=== PATIENT | male | born 1960 | race Caucasian/White ===

== ENCOUNTER 2019-04-22 20:06 | Inpatient (IN) ==
[2019-04-22 21:17] LABS: URINE SOURCE CLEAN CATCH
[2019-04-22 21:23] LABS: BLOOD URINE NEGATIVE (NEGATIVE); COLOR YELLOW; GLUCOSE URINE NEGATIVE (NEGATIVE); KETONE URINE NEGATIVE (NEGATIVE); LEUKOCYTES URINE NEGATIVE (NEGATIVE); NITRITE URINE NEGATIVE (NEGATIVE); PROTEIN URINE TRACE mg/dL (NEGATIVE); SP GRAVITY URINE 1.023; TURBIDITY URINE HAZY (CLEAR); UROBILINOGEN URINE 2 mg/dL (NORMAL)
[2019-04-22 21:24] LABS: UR EPITHELIAL CELLS <10 /HPF (<10); URINE BACTERIA NEGATIVE /HPF; URINE WBC <10 /HPF (<10)
[2019-04-22 21:28] LABS: BILIRUBIN URINE LARGE (NEGATIVE)
[2019-04-23 00:59] LABS: BASO# 0.05 X1000 (0.0-0.2); BASO% 1.1 % (0.0-0.8); EOS# 0.03 X1000 (0.0-0.7); EOS% 0.7 % (0.0-10.0); HEMATOCRIT 38.9 % (42.0-52.0); HEMOGLOBIN 13.9 g/dL (14.0-18.0); IMM GRAN# 0.03 X1000 (0.0-0.04); IMM GRAN% 0.7 % (0.0-0.5); LYMPH# 1.07 X1000 (1.2-3.4); LYMPH% 23.8 % (20.5-51.1); MCH 31.6 PG (27-31); MCHC 35.7 g/dL (33-37); MCV 88.4 FL (81-99); MONO# 0.76 X1000 (0.11-0.59); MONO% 16.9 % (1.7-9.3); MPV 11.4 FL (7.4-10.4); NEUT# 2.56 X1000 (1.4-6.5); NEUT% 56.8 % (42.2-75.2); PLT 224 X1000 (130-400); RDW 13.5 % (11.5-14.5)
[2019-04-23 01:31] LABS: AGAP 9; ALB/GLOB RATIO 0.7; ALBUMIN 2.8 g/dL (3.5-5.0); ALKALINE PHOSPHATASE 130 U/L (32-122); BUN 8 mg/dL (8-22); CALCIUM 8.4 mg/dL (8.8-10.2); CHLORIDE 99 mmol/L (98-107); COSMO 264; CREATININE 0.6 mg/dL (0.7-1.2); ESTIMATED GFR > 60; GLUCOSE 112 mg/dL (70-104); GOT 2823 U/L (10-34); GPT 2434 U/L (10-44); SODIUM 132 mmol/L (136-145); TCO2 24 mmol/L (25-35); TOTAL BILIRUBIN 11.98 mg/dL (0.20-1.00); TOTAL PROTEIN 6.9 g/dL (6.3-8.3)
[2019-04-23 02:44] LABS: INR 1.16
[2019-04-23 02:45] LABS: PTT 33.2 Seconds (22.3-41.8)
--- NOTE | 2019-04-23 03:39 | PROVIDER DOCUMENTATION ---
This chart was entered by Maria De Jesus Bynum Scribe, acting as scribe for Martin Madden MD. HPI-Abdominal Pain/GI Problem - General Chief Complaint: Abdominal Pain Stated Complaint: HEMATURIA Time Seen by Provider: 04/23/19 00:19 Source: patient Allergies/Adverse Reactions: Patient Allergies Allergy/AdvReac Type Severity Reaction Status Date / Time No Known Allergies Allergy Verified 04/23/19 00:46 Home Medications: Home Medication List Medication Instructions Recorded Confirmed Last Taken Type Aspirin 325 mg PO DAILY 04/23/19 04/23/19 04/22/19 History - History of Present Illness-ABD Nature of Presenting Problems: 59 yom c/o ruq and epigastric abd pain, and blood in urine x 3 days. pt is an alcoholic. pt denies nvd, fever and chills. pt skin is jaundiced. pt has no regular pcp. pt has hx of afib, htn and chf. Abdominal Pain Onset Location: reports: RUQ, epigastric Pain Radiation: reports: no radiation Severity in ED: reports: mild Onset/Duration: reports: 3 days ago Timing: reports: still present Review of Systems - Adult - REVIEW OF SYSTEMS - ADULT Constitutional: reports: no symptoms reported. denies: chills, fever, fatique Eyes: reports: no symptoms reported Ears, Nose, Mouth & Throat: reports: no symptoms reported Cardiovascular: reports: no symptoms reported Respiratory: reports: no symptoms reported Gastrointestinal: reports: see HPI, abdominal pain. denies: diarrhea, nausea, vomiting Genitourinary: reports: see HPI, hematuria. denies: dysuria, discharge, frequency Musculoskeletal: reports: no symptoms reported Integumentary: reports: see HPI, other (jaundice skin). denies: hives, itching, skin sores/ulcer Neurological: reports: no symptoms reported Psychiatric: reports: no symptoms reported Endocrine: reports: no symptoms reported Hematologic/Lymphatic: reports: no symptoms reported Allergic/Immunologic: reports: no symptoms reported All Other Systems: Reviewed and Negative Past History - Adult - PAST MEDICAL HISTORY-ADULT Review of Records: reports: Old Records Reviewed, Nursing Assessment Review, Medications Reviewed, Social history reviewed & non-contributory. Major Childhood Illnesses: reports: denies history Cardiovascular: reports: A-Fib, CHF, HTN Respiratory: reports: denies history Gastrointestinal: reports: denies history Obstetrical/Gynecological: reports: denies history Genitourinary: reports: denies history Musculoskeletal: reports: denies history Neurological: reports: denies history Endocrine/Immune: reports: denies history Other Conditions: reports: denies history - PRIOR SURGERIES/PROCEDURES Surgical/Procedure History: reports: none - IMMUNIZATION STATUS Childhood Immunizations: See Nurse Assessment Flu Vaccine: See Nurse Assessment - FAMILY HISTORY Family History: reviewed, not pertinent - SOCIAL HISTORY Smoking: cigarettes, greater than 1 pack/day Provider spent 3-5 mins advising pt. on dangers of tobacco.: Discussed manners to quit use, and f/u contacts for add'l counseling. Substance Use: alcohol, marijuana Alcohol Use Frequency: every day Physical Exam-General - PHYSICAL EXAM-ADULT Initial Vital Signs Reviewed: Yes - CONSTITUTIONAL General Appearance: appears well, alert, no apparent distress - EYES Eyes: PERRL/EOMI, scleral icterus. negative: pink conjunctivae, subconjunctival hemorrhage, sunken eyes - HEAD, EARS, NOSE, MOUTH & THROAT HENMT: normocephalic/atraumatic, moist mucous membranes, normal ENT inspection - NECK Neck: non-tender, full range of motion, supple, normal inspection - RESPIRATORY Respiratory: chest non-tender, lungs clear, normal breath sounds - CARDIOVASCULAR Cardiovascular: normal peripheral pulses, regular rate, rhythm - GASTROINTESTINAL (ABDOMEN) Abdominal Exam: normal bowel sounds, soft, no organomegaly, no pulsatile mass, tenderness (ruq and epigastric to palp). negative: non tender, abnormal bowel sounds, distended, rebound - LYMPHATIC Lymphatic: no adenopathy - MUSCULOSKELETAL Back Exam: normal inspection, no CVA tenderness, no vertebral tenderness Extremity: normal range of motion, non-tender, normal inspection Peripheral Pulses: radial (R): 2+, radial (L): 2+ - SKIN Integumentary: normal turgor, warm/dry, jaundice (generalized body). negative: normal color, abrasion(s), ecchymosis, erythema, rash, swelling, tenderness - NEUROLOGIC Neurologic: grossly normal, no motor/sensory deficits - PSYCHIATRIC Psych/Mental Status: normal mood/affect, normal thought content, normal thought process, oriented x 3 Progress - PLAN OF CARE/RESULTS Progress/Plan/Lab Results: Vital Signs - 8 hr 04/22/19 20:14 04/23/19 00:13 Temperature 97.9 F 98.0 F Pulse Rate 67 78 Respiratory Rate 18 18 Blood Pressure 153/78 130/79 O2 Sat by Pulse Oximetry 99 99 Laboratory Results - last 24 hr 04/22/19 20:44 Urine Source CLEAN CATCH Urine Color YELLOW Urine Turbidity HAZY Urine pH 6.0 Ur Specific [place] 1.023 Urine Protein TRACE A Ur Glucose (Stick) NEGATIVE Ur Ketones (Stick) NEGATIVE Urine Blood NEGATIVE Urine Nitrite NEGATIVE Urine Bilirubin LARGE A Urobilinogen Dipstick 2 A Urine Leukocytes NEGATIVE Urine WBC (Auto) <10 Urine RBC (Auto) 10-20 A U Epithel Cells (Auto) <10 Urine Bacteria (Auto) NEGATIVE Orders Category Date Time Status CBC WITH ELECTRONIC DIFF [HEME] Stat Lab 04/23/19 00:20 Uncollected CMP [COMPREHENSIVE METABOLIC PANEL] [CHEM] Stat Lab 04/23/19 00:20 Uncollected URINALYSIS W/POSS RFLX CULT [URINALYSIS] Stat Lab 04/22/19 20:44 Completed Result Diagrams: 04/23/19 00:39 04/23/19 00:39 - CT/MRI 1 CT Study: Abdomen, Pelvis Impression: Abnormal, See EMR Report (possible acute cholecystitis, periportal edema, Mild perihepatic ascities.) - CONSULTS/PCP/HOSPITALIST Notification #1 *Consult/PCP/Hospitalist*: Dr Herrera Time Discussed: 03:37 Consult Disposition: Will see in ED, Admit Departure - Departure Date of Disposition Decision: 04/23/19 Time of Disposition Decision: 03:38 DIAGNOSIS: Elevated LFTs, Jaundice, Acute cholecystitis Disposition: ADMITTED INPATIENT 09 Certified Medical Emergency: Emergent Condition: Fair Referrals and Follow-Ups: None,PCP [Primary Care Provider] - - Critical Care Note This patient required my direct & personal management of CC.: No Attestation - Physician/ KESHA Attestation Patient care was provided by Advanced Practice Provider:: No The physician spent face to face time with patient:: Yes Advanced Practice Provider documentation review:: Supervising physician onsite and consulted in the evaluation and care of this patient. The physician did have a face to face encounter with the patient. This chart was documented by the indicated scribe, (Maria De Jesus Bynum Scribe) and accurately reflects the services I performed and decisions made by me, Martin Madden MD, as attested by the provider's signature.
[2019-04-23] MEDS ORDERED: ZOSYN 3.375 GM in NS 50 ML IV ONE (03:45)
--- NOTE | 2019-04-23 04:26 | HISTORY AND PHYSICAL ---
PRIMARY CARE PHYSICIAN: None. Is visiting from [place]. CHIEF COMPLAINT: Noticed dark urine and turning yellow color. HISTORY OF PRESENTING ILLNESS: A 59-year-old male with a history of chronic alcoholism and low back pain, had presented to the emergency department because he noticed dark urine and also the patient's turning yellow color. He states that he may have over did drinking this past several weeks. He was evaluated in the emergency department. The patient also had imaging done which did raise the suspicion of possible acute cholecystitis. Due to his presenting symptoms it was thought that he will require admission for further management. At the time of my examination the patient states that he just does not feel well. He denied any headache, fever, chills, chest pain, shortness of breath or any weight changes. PAST MEDICAL HISTORY: Includes chronic back pain. 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 ALLERGIES: No known drug allergies. CURRENT MEDICATIONS: None. SOCIAL HISTORY: A [id number] history of smoking. Admits to drinking daily, recently started drinking liquor also. Denies any illicit drug use. FAMILY HISTORY: Positive for coronary disease in his father. REVIEW OF SYSTEMS: Fourteen point review of system as listed in the HPI. Other systems negative. PHYSICAL EXAMINATION: GENERAL: A cooperative friendly male. He is resting comfortably now. VITAL SIGNS: Temperature 97.9 degrees, pulse 67, respirations 18, blood pressure 153/78. HEENT: Atraumatic and normocephalic. Extraocular movements are intact. There is some mild scleral icterus. NECK: No masses. CHEST: Clear to auscultation. CARDIOVASCULAR: Regular rate and rhythm. ABDOMEN: Soft. Positive bowel sounds. EXTREMITIES: No edema. NEUROLOGIC: He is awake, alert and oriented x3. : No bladder distention. SKIN: There is a yellowish hue noted. LABORATORIES AND STUDIES: WBC is 4.50, hemoglobin 13.9, hematocrit 38.9, platelets 224,000. Sodium 132, potassium 4.0, chloride 99, CO2 is 24, BUN is 8, creatinine is 0.6, glucose is 112. Bilirubin is 11.98, AST is 2823, ALT is 2434, alkaline phosphatase is 130. A CT of the abdomen and pelvis shows possibility of acute cholecystitis. ASSESSMENT: A 59-year-old male with a history of chronic low back pain and chronic alcoholism who had presented to the emergency department with a 1-week history of noticing dark urine and turning yellowish color. He was evaluated in the emergency department, the patient was jaundiced and also noted to have markedly elevated liver function tests . The patient also had imaging done which did show possibility of acute cholecystitis. Subsequently he will require admission for further management. 1. Alcoholic hepatitis. 2. Jaundice. 3. Suspected acute cholecystitis. 4. Abnormal liver function tests. 5. Chronic low back pain. PLAN: 1. We will admit the patient to medical floor with telemetry. 2. We will continue with supportive treatment. 3. We will consult Gastroenterology. 4. We will obtain a HIDA scan and start the patient on empiric antibiotics. 5. We will check a hepatitis profile and an abdominal ultrasound. 6. We will give the patient adequate pain control. 7. We will put the patient on DVT prophylaxis with SCD. 8. We will continue to follow, reassess and make further recommendations based on the patient's clinical course. cc: Melo Herrera MD MTDD
--- NOTE | 2019-04-23 07:16 | Diag Imaging Result Doc PS360 ---
EXAM: CT ABD/PELVIS W/IV CONT ONLY 04/23/2019 HISTORY: abdo pain TECHNIQUE: This exam was performed using automated exposure control, adjustment of mA or kV according to patient size, and/or use of iterative reconstruction technique. COMMENT: There is fibrotic change in the lateral costophrenic sulcus of the left lower lobe. There is no evidence of nephrolithiasis or hydronephrosis. There is pericholecystic fluid. No definite stones are demonstrated in the gallbladder. The spleen and adrenal glands are not enlarged. The pancreas is unremarkable. The aorta is not distended. There is an accessory left renal artery in the upper pole. The mesenteric arteries are patent. There is some periportal edema. Otherwise the liver is unremarkable. There are no renal masses. There is a norberto hepatis node approaching 15 mm in greatest dimension, otherwise there is no evidence of significant adenopathy or bowel obstruction. Pelvis: The appendix is normal in appearance. The urinary bladder is not distended. There is no evidence of free fluid. There is a bone island in the proximal left femur. There are degenerative disc changes and facet arthropathy particularly at the L5-S1 level. There is no evidence of acute bony abnormality. IMPRESSION: Acalculous cholecystitis. Periportal edema which may be secondary to this, or related to hepatitis. Electronically signed by Kemar Salmeron 04/23/2019 7:13 AM
[2019-04-23] MEDS ORDERED: M.V.I.-12 10 ML, FOLIC ACID 1 MG, MAGNESIUM SULFATE 1 GM, THIAMINE 100 MG in NS 1,000 ML IV ONE (08:26)
--- NOTE | 2019-04-23 13:21 | Diag Imaging Result Doc PS360 ---
EXAM: US ABDOMEN-COMPLETE 04/23/2019 HISTORY: abnormal LFT TECHNIQUE: Abdominal ultrasound COMMENT: The visualized portions of the aorta and inferior vena cava are within normal limits. The pancreas is normal in appearance. The liver is unremarkable. There is antegrade flow in the portal vein. The common bile duct measures less than 3 mm. The gallbladder appears somewhat contracted. The kidneys are without evidence of hydronephrosis or mass. The spleen is not enlarged. There is no sonographic Rayo sign. There is an apparent periportal node measuring 16 mm in greatest dimension. IMPRESSION: No evidence of biliary obstruction or gallstones. No evidence of acute cholecystitis. Blanca hepatis adenopathy. Electronically signed by Kemar Salmeron 04/23/2019 1:19 PM
--- NOTE | 2019-04-23 13:36 | Diag Imaging Result Doc PS360 ---
EXAM: HIDA SCAN W/O EJECT. FRACTION 04/23/2019 HISTORY: abdominal pain TECHNIQUE: Hepatobiliary scan, 5.4 mCi of technetium 99m Choletec COMMENT: The study was carried out to 120 minutes and no activity is demonstrated in the gallbladder or small bowel. IMPRESSION: Given the findings on ultrasound and CT, without any evidence of dilatation of the biliary tract, the lack of excretion of activity is probably related to cholestasis or hepatocellular disease. Electronically signed by Kemar Salmeron 04/23/2019 1:34 PM
[2019-04-23 15:36] LABS: IRON SATURATION 81 %; TIBC 184 ug/dL; TOTAL IRON 149 ug/dL (53-167); UNBOUND IRON 35 ug/dL (112-346)
--- NOTE | 2019-04-23 15:51 | GENERAL SURGERY CONSULTATION ---
DATE: 04/23/2019 REQUESTING PHYSICIAN: Hospitalist. REASON FOR CONSULTATION: Hepatitis versus cholecystitis. HISTORY OF PRESENT ILLNESS: This 59-year-old gentleman with a history of chronic alcoholism and low back pain presented to the Emergency Department because of dark urine and jaundice. He did increase his drinking over the last several days. He had imaging done that showed hepatitis and possible cholecystitis and further imaging that showed this possibility. He did undergo a HIDA scan which did not show any uptake into the gallbladder but his bilirubin is above 11. I have been asked to weigh an opinion. He is not currently complaining of any abdominal pain. PAST MEDICAL HISTORY: Includes chronic back and chronic alcoholism. PAST SURGICAL HISTORY: Previous amputation. ALLERGIES: None. CURRENT MEDICATIONS: Reviewed. SOCIAL HISTORY: Forty plus years of smoking and drinks regularly. FAMILY HISTORY: Positive for coronary artery disease. REVIEW OF SYSTEMS: A full 10 point review of systems was obtained and negative except for those specified in the HPI. PHYSICAL EXAMINATION: VITAL SIGNS: The patient is currently afebrile. His vital signs are stable. GENERAL: No acute distress. Jaundiced male who looks his stated age. HEENT: Normocephalic, atraumatic. Pupils are equal, round, and reactive to light. Positive scleral icterus noted. Mucous membranes are moist. Oropharynx benign. NECK: Supple. Trachea is midline. CARDIOVASCULAR: Regular rate and rhythm. LUNGS: Grossly clear. ABDOMEN: Soft, nontender, and distended. EXTREMITIES: Moves all extremities. NEUROLOGIC: Grossly intact. SKIN: Positive for jaundice. VASCULAR: All extremities are perfused. LABORATORY DATA: White blood cell count is 4.5, hematocrit 38, and platelet count 224. CMP was reviewed. Of note, his bilirubin is almost 12. AST and ALT are both almost 3,000. ALK PHOS is 130. IMAGING: Reviewed and noted above. ASSESSMENT AND PLAN: A 59-year-old gentleman with likely alcohol-induced hepatitis. 1. Alcohol-induced hepatitis. At this time he does report increased p.o. intake of alcohol and liquor. This likely explains his large elevation in his AST and ALT in the setting of his current situation. His bilirubin is elevated and it is likely prohibitively elevated to have any kind of interpretative ability of the HIDA scan. At this point he is nontender. I would recommend managing him nonoperatively. I do not suspect that he acute cholecystitis. I suspect that the edema noted on the CT scan is secondary to his hepatitis. There was some discussion of adenopathy noted on the ultrasound around his portal system but I cannot see that as clearly on the CT scan. Recommend deferring that workup for now. My partners will cover over the weekend. I appreciate the consult. No immediate plans for surgical intervention. cc: Carlo Hodgson MD
--- NOTE | 2019-04-23 16:38 | PROGRESS NOTE ---
DATE: 04/23/2019 SUBJECTIVE: Today Mr. Harris refers to be doing a lot better. He was asking if he can be fed because he is feeling very hungry. OBJECTIVE: Vitals: Blood pressure is 122/70, pulse of 60, respiration is 16, temperature is 97.9 degrees. General exam: Mr. Harris is a 59-year-old gentleman. He is in bed, no distress. HEENT: Mucosa is pink and moist. Anicteric. Acyanotic. Neck: Supple. Chest: Clear to auscultation. Cardiovascular: Regular rate and rhythm. Abdomen: Soft, minimally tender in the right upper quadrant with mild hepatomegaly. Extremities: No pedal edema. TANK TERMINAL GAUGER: Patient is awake, alert, oriented. The patient has very poor dentition. LABORATORY DATA: Has been reviewed. CBC: Patient has mild borderline leukopenia, normocytic anemia with normal platelet. LFTs are extremely elevated. ASSESSMENT AND PLAN: 1. Acute hepatocellular injury secondary to most likely alcohol-induced hepatitis. The patient's discriminant hepatitis score is 26, which is less than 32, so there is no need for any steroid use. 2. Chronic alcohol use and abuse. 3. Acalculous cholecystitis. So, in general, I think Mr. Harris is doing a lot better. We are going to start him on GI soft, continue with the current IV fluids, avoid any hepatotoxic drugs and re-evaluate him in the morning. Patient has also been seen by GI and Surgery. cc: Jeff Friedman MD
[2019-04-23] MEDS: ZOSYN 3.375 GM in NS 50 ML IV SCH ×2 (19:08→21:36)
[2019-04-23] MEDS ORDERED: TYLENOL PO ONE (20:09)
--- NOTE | 2019-04-23 21:16 | GASTROENTEROLOGY CONSULTATION ---
DATE: 04/23/2019 REASON FOR CONSULTATION: History of elevated liver function tests. HISTORY OF PRESENT ILLNESS: This is a 59-year-old male who came in the emergency department with complaints of dark urine. He states he thinks he messed up by drinking too much recently. Normally he reports 2-3 beers daily, but over the last week he has had liquor every day. He has a girlfriend at the bedside who states she had noticed yellow jaundice of his eyes and skin over the last 5-6 days. He had reported some abdominal pain which has currently improved. During workup he was found to have significant elevation of his liver function tests. He has recently gone for an ultrasound and HIDA scan. The patient reports a diagnosis of hepatitis C maybe 2 years ago. He states he has never taken treatment for hepatitis C. 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 He does have some tattoos. PAST MEDICAL HISTORY: Chronic back pain, history of fracture of the back, heart disease, hypertension, atrial fibrillation. I do not believe he has a primary physician. PAST SURGICAL HISTORY: Amputation of right 5th digit. ALLERGIES: No known drug allergies. HOME MEDICATIONS: Aspirin 325 mg daily. SOCIAL HISTORY: Positive for tobacco use. He drinks daily, and recently started drinking liquor over the last week or so. He has a history of IV drug use but states he has been clean for over a year. There is report of marijuana use. FAMILY HISTORY: Positive for heart disease in his father. REVIEW OF SYSTEMS: Per History of Present Illness. PHYSICAL EXAMINATION: Vital Signs: Temperature 97.9, pulse 60, respirations 16, blood pressure 122/70. General: The patient is awake and alert. He has just gotten back from Radiology, having an us and HIDA scan. He has a girlfriend at the bedside. HEENT: Normocephalic, atraumatic. Pupils equal, round, and reactive to light. Scleral jaundice noted. Respiratory: Lung sounds clear. Cardiovascular: Regular rate and rhythm. Abdomen: Soft and nontender. Positive bowel sounds. Extremities: No lower extremity edema noted. Neurologic: Cranial nerves II-XII intact. The patient is awake, alert and oriented to person, place and time. Skin: Skin color noted to be jaundiced. LABORATORY DATA: Hematology: WBCs 4.50, hemoglobin 13.9, hematocrit 38.9, MCV 88.4, platelets 224. Coagulation: Pro time 15.0, INR 1.16, PTT 33.2. Chemistry: Sodium 132, potassium 4.0, chloride 99. CO2 is 24, BUN 8, creatinine 0.6, glucose 112. Calcium 8.4. Total bilirubin 11.98. AST 2823, ALT 2434, alkaline phosphatase 130. Ammonia 49. Albumin 2.8. Urinalysis showed a large amount of bilirubin. IMAGING STUDIES: Abdominal/pelvis CT scan showed acalculous cholecystitis, periportal edema. Ultrasound of the abdomen showed no evidence of biliary obstruction or gallstones. No evidence of acute cholecystitis. Blanca hepatis adenopathy. HIDA scan showed no activity in the gallbladder or small bowel after 120 minutes. Impression: Given the findings on ultrasound and CT, there was no evidence of dilation of the biliary tract. Lack of excretional activity is probably related to cholestasis or hepatobiliary disease. ASSESSMENT/PLAN: 1. Alcoholic hepatitis. 2. Jaundice. 3. Possible cholecystitis. 4. Significant elevation in liver function tests. 5. History of reported hepatitis C, never been treated. 6. HIDA scan and ultrasound have been reviewed with Dr. Santos. We have ordered autoimmune studies and other liver workup. Also will add Tylenol level and LDH. We will continue to monitor closely. 7. Other plans will be made according to his progress. I have discussed this case with Dr. Santos. Thank you for this consultation. Dictated by RORY Mccartney for Placido Santos MD cc: RORY Middleton MD [facility]
[2019-04-24] MEDS: ZOSYN 3.375 GM in NS 50 ML IV SCH (04:17)
[2019-04-24 06:28] LABS: BASO# 0.04 X1000 (0.0-0.2); BASO% 1.1 % (0.0-0.8); EOS# 0.05 X1000 (0.0-0.7); EOS% 1.4 % (0.0-10.0); HEMOGLOBIN 13.1 g/dL (14.0-18.0); IMM GRAN# 0.05 X1000 (0.0-0.04); IMM GRAN% 1.4 % (0.0-0.5); LYMPH# 1.08 X1000 (1.2-3.4); LYMPH% 30.5 % (20.5-51.1); MCH 32.3 PG (27-31); MCHC 36.4 g/dL (33-37); MCV 88.9 FL (81-99); MONO# 0.61 X1000 (0.11-0.59); MONO% 17.2 % (1.7-9.3); MPV 11.8 FL (7.4-10.4); NEUT# 1.71 X1000 (1.4-6.5); NEUT% 48.4 % (42.2-75.2); PLT 234 X1000 (130-400); RBC 4.05 XMIL (4.7-6.1); RDW 13.6 % (11.5-14.5); WBC 3.54 X1000 (4.8-10.8)
[2019-04-24 07:23] LABS: AGAP 10; ALB/GLOB RATIO 0.7; ALBUMIN 2.4 g/dL (3.5-5.0); ALKALINE PHOSPHATASE 107 U/L (32-122); BUN 11 mg/dL (8-22); CALCIUM 7.4 mg/dL (8.8-10.2); CHLORIDE 100 mmol/L (98-107); COSMO 269; CREATININE 0.6 mg/dL (0.7-1.2); ESTIMATED GFR > 60; GLUCOSE 97 mg/dL (70-104); POTASSIUM 3.9 mmol/L (3.5-5.1); SODIUM 135 mmol/L (136-145); TCO2 25 mmol/L (25-35); TOTAL BILIRUBIN 10.77 mg/dL (0.20-1.00); TOTAL PROTEIN 5.9 g/dL (6.3-8.3)
[2019-04-24 07:37] LABS: GOT 1715 U/L (10-34); GPT 1737 U/L (10-44)
--- NOTE | 2019-04-24 10:44 | GENERAL SURGERY PROGRESS NOTE ---
DATE: 04/24/2019 SUBJECTIVE: Mr. Harris in generally well. Says he feels better. OBJECTIVE: VITAL SIGNS: He is afebrile. Heart rate 57, blood pressure 108/55. Abdomen: Minimally tender. White count is normal. Hemoglobin is 13.1. His AST is down to 1715, ALT down to 1737, alkaline phosphatase is normal. ASSESSMENT AND PLAN: I think that he has alcoholic hepatitis with his numbers improving. I do not see any reason for operative intervention. cc: Merritt Prieto MD
--- NOTE | 2019-04-24 13:39 | PROGRESS NOTE ---
DATE: 04/24/2019 SUBJECTIVE: This morning Mr. Harris refers to be feeling a whole lot better, has some mild headache, but has good appetite. OBJECTIVE: Vitals: Blood pressure is 108/55, pulse of 57, respirations 18, temperature 98.7 degrees. General: Mr. Harris is a 59-year-old, male who was in bed, in no distress. HEENT: Mucosa is pink and moist. Slightly icteric. Neck: Supple. No JVD. Chest: Good air entry bilaterally. No crepitations. No rhonchi. Cardiovascular: Regular rate and rhythm. Abdomen: Soft, minimally tender in the right upper quadrant, with mild hepatomegaly. Extremities: No pedal edema. CARD FEEDER: The patient is awake, alert, and oriented. LABORATORY DATA: WBC is 3.54, hemoglobin is 13.1, platelet count of 234,000. Chemistry is also reviewed and is completely unremarkable. AST and ALT are trending down, which is good. ASSESSMENT: 1. Acute hepatocellular injury secondary to alcohol-induced hepatitis, with discriminant hepatitis score of 26 yesterday. The patient is not on any steroids. 2. Chronic alcohol use and abuse. 3. Tobacco use and abuse. The patient has been counseled. In general, Mr. Harris is doing a lot better. The liver enzymes are trending down. He has good appetite. We are going to advance his diet to a regular diet. cc: Jeff Friedman MD
[2019-04-24 14:37] LABS: INR 1.07
--- NOTE | 2019-04-24 20:03 | GASTROENTEROLOGY PROGRESS NOTE ---
DATE: 04/24/2019 The patient is lying in bed, comfortable. He reports no symptoms. He tells me that he is feeling much better since admission. He has been tolerating his diet well. Denies any abdominal pain, nausea, vomiting. Temperature 98.4 degrees, pulse 60, breathing rate of 18, blood pressure 110/72. Eyes, conjunctivae pale. Sclerae mildly icteric. Nares are patent. No discharge. Abdomen is full, soft, nontender. I could not appreciate masses or organomegaly. No ascites noted. Bowel sounds are audible. LABORATORIES: Reviewed which showed WBC 3.54, hemoglobin 13.1, hematocrit 36.0, MCV 88.9, platelets were 234, sodium 135, potassium 3.9, chloride 100, bicarb was 25, BUN is 11, creatinine 0.6. AST has dropped down from 2823 to 1715. ALT has gone down from 2434 to 1737. The total bilirubin is 10.7 today. His alkaline phosphatase is 107 today. Albumin 2.4, PT was 14.0, INR 1.07. IMPRESSION: Acute hepatitis, it appears to be combination of alcoholic hepatitis and underlying chronic hepatitis C, does not appear to be in liver failure. The criteria does not qualify him for fulminant hepatitis either. His numbers have improved since admission and is trending downwards. PT/INR is normal as albumin, although low, but stable. At this point, I would continue supportive care. I had a lengthy discussion with him about alcohol abuse, encouraged him to stop drinking. Other workup serology, immunology is pending for now. We are waiting for that and depending on the findings of those, we will decide further plans of treatment. If indeed he is confirmed to have hepatitis C, he will be a candidate for antiviral treatment. He is from [place] and I have encouraged him to get back with his primary care and maybe he needs a referral to bliss press operator there for further treatment. I have answered all his pertinent questions and his fiancee was at his bedside and I answered her questions as well. cc: Placido Santos MD
[2019-04-25] MEDS: ZOFRAN IV PRN ×2 (03:56→23:39)
[2019-04-25 06:41] LABS: INR 1.01; PROTIME 13.4 Seconds (11.0-16.0)
[2019-04-25 06:56] LABS: AGAP 8; ALB/GLOB RATIO 0.6; ALBUMIN 2.6 g/dL (3.5-5.0); ALKALINE PHOSPHATASE 108 U/L (32-122); BUN 9 mg/dL (8-22); CALCIUM 8.2 mg/dL (8.8-10.2); CHLORIDE 103 mmol/L (98-107); COSMO 272; CREATININE 0.6 mg/dL (0.7-1.2); ESTIMATED GFR > 60; GLUCOSE 90 mg/dL (70-104); POTASSIUM 4.4 mmol/L (3.5-5.1); SODIUM 137 mmol/L (136-145); TCO2 26 mmol/L (25-35); TOTAL BILIRUBIN 10.18 mg/dL (0.20-1.00); TOTAL PROTEIN 6.8 g/dL (6.3-8.3)
[2019-04-25 07:14] LABS: GOT 967 U/L (10-34); GPT 1335 U/L (10-44)
--- NOTE | 2019-04-25 09:02 | GENERAL SURGERY PROGRESS NOTE ---
DATE: 04/25/2019 TIME: 8:45 a.m. SUBJECTIVE: Mr. Harris is sitting up, eating. His abdomen is soft. Denies any significant abdominal pain. His LFTs continue to improve. No operative intervention is planned. cc: Merritt Prieto MD
[2019-04-25 10:50] LABS: HEPATITIS PROFILE ACUTE SEE COMMENTS
--- NOTE | 2019-04-25 12:24 | PROGRESS NOTE ---
DATE: 04/25/2019 SUBJECTIVE: This morning, Mr. Harris refers to be doing okay. No new complaints. No nausea. He has been tolerating his regular diet. OBJECTIVE: Vital Signs: Blood pressure is 116/58, pulse of 60, respirations are 18, temperature is 98 degrees. General Examination: Mr. Harris is a 59-year-old, male. He is in bed. No distress. There is mild icterus. HEENT: Mucosa is pink and moist. Anicteric. Acyanotic. Neck: Supple. Chest: Good air entry bilaterally. There were no crepitations, no rhonchi. Cardiovascular: Regular rate and rhythm. No murmurs, no rubs, no gallops. Abdomen: Soft. Minimally tender in the right upper quadrant. Mild hepatomegaly. Extremities: No pedal edema. BI MANAGER: The patient is awake, alert, oriented. Chemistry is reviewed. AST is down to 967, ALT is also down to 1335. The patient's hepatitis panel is positive for hepatitis A viral as well as hepatitis C. ASSESSMENT: 1. Acute hepatocellular injury secondary to a combination of viral hepatitis and alcohol-induced hepatitis. The patient's hepatitis panel shows hepatitis A IgM positive, which is acute infection, and also hepatitis C. 2. Chronic alcohol use and abuse. 3. Tobacco use and abuse. PLAN: In general, Mr. Harris seems to be doing a whole lot better. His LFTs are trending down. His current hepatitis panel has been reviewed. He will continue to follow up with GI. I think Mr. Harris will potentially be discharged tomorrow if the LFTs continue to show a downward trend. We will be pending final recommendations from GI. cc: Jeff Friedman MD
--- NOTE | 2019-04-25 13:46 | GASTROENTEROLOGY PROGRESS NOTE ---
DATE: 04/25/2019 SUBJECTIVE: The patient was resting, in no acute distress. He aroused easily. Laboratory results were reviewed. Serology: Hepatitis profile showed reactive hepatitis C and also reactive hepatitis A viral antibody, IgM. OBJECTIVE: Vital Signs: Temperature 97.3 degrees, pulse 59, respirations 18, blood pressure 117/70. General: The patient is awake and alert, in no acute distress. Laboratory: As noted, hepatitis C reactive, hepatitis A, IgM reactive. Hematology: WBC 3.54, hemoglobin 13.1, hematocrit 36.0, MCV 88.9, platelets 234,000. Chemistry: Sodium 137, potassium 4.4, chloride 103, CO2 of 26, BUN 9, creatinine 0.6, glucose 90. Total bilirubin 10.18, AST 967, ALT 1335, GGT 134. ASSESSMENT AND PLAN: 1. Elevated liver function tests with reactive hepatitis C and also hepatitis A, IgM positive. The patient will be placed in isolation. I have notified clubhouse manager. 2. Chronic alcohol use and tobacco use. Encouraged smoking cessation and alcohol cessation. 3. Elevated liver function tests are improving. We will continue to follow. The patient lives in [place]. I have informed him of the importance of contacting his primary care provider and for referral to a spa manager for hepatitis C treatment. He voices understanding. I have discussed this case with Dr. Santos. Dictated by RORY Mccartney for Placido Santos MD cc: RORY Middleton MD
[2019-04-26] MEDS: ZOFRAN IV PRN ×2 (03:44→13:36)
[2019-04-26 06:17] LABS: AGAP 7; ALB/GLOB RATIO 0.6; ALBUMIN 2.6 g/dL (3.5-5.0); ALKALINE PHOSPHATASE 101 U/L (32-122); BUN 8 mg/dL (8-22); CALCIUM 8.2 mg/dL (8.8-10.2); CHLORIDE 101 mmol/L (98-107); COSMO 270; CREATININE 0.6 mg/dL (0.7-1.2); ESTIMATED GFR > 60; GLUCOSE 98 mg/dL (70-104); GOT 506 U/L (10-34); POTASSIUM 3.9 mmol/L (3.5-5.1); SODIUM 136 mmol/L (136-145); TCO2 28 mmol/L (25-35); TOTAL BILIRUBIN 9.26 mg/dL (0.20-1.00); TOTAL PROTEIN 6.8 g/dL (6.3-8.3)
[2019-04-26 06:27] LABS: GPT 972 U/L (10-44)
[2019-04-26 15:51] VITALS: BP 115/74
--- NOTE | 2019-04-26 16:54 | DISCHARGE SUMMARY ---
ADMISSION DATE: 04/23/2019 DISCHARGE DATE: 04/26/2019 DISPOSITION: Home. FOLLOW-UP: 1. Placido Santos MD 2. Carlo Hodgson MD CONSULTATION DURING THIS ADMISSION: 1. GI was consulted. Patient was seen by Dr. Santos. 2. Surgery was consulted. Patient was seen by Dr. Hodgson. Followed up by Dr. Prieto. ADMISSION DIAGNOSES: 1. Alcoholic hepatitis. 2. Jaundice. 3. Suspected acute cholecystitis. 4. Abnormal liver function test. DIAGNOSIS AT THE TIME OF DISCHARGE: 1. Acute hepatocellular injury secondary to a combination of viral hepatitis and alcohol-induced hepatitis. 2. Acute hepatitis A. 3. Hepatitis C positive serology. 4. Chronic alcohol use and abuse. 5. Tobacco use and abuse. DISCHARGE MEDICATIONS: None. IMAGING STUDIES OF SIGNIFICANCE: CT scan of the abdomen did show acalculous cholecystitis, periportal edema which may be secondary to this. Ultrasound of the abdomen showed no evidence of biliary obstruction. No evidence of acute cholecystitis or norberto hepaticus adenopathy. PRESENTING COMPLAINT: Dark urine and turning yellow color. HISTORY OF PRESENT COMPLAINT: Mr. Harris is a 59-year-old male who is a resident of [place]. He came to visit some friends and started to notice that his urine was getting dark and that he is also turning yellowish in color. He came to the emergency department. He was found to be jaundice with highly elevated liver enzymes. Patient was subsequently admitted for further medical evaluation. HOSPITAL COURSE: Mr. Mcgrath was admitted to the medical floor was kept n.p.o. initially and adequately fluid resuscitated. Imaging studies and other lab work were done. All came back consistent with viral hepatitis as well as alcohol-induced hepatitis. The patient was seen by GI and Surgery. The patient's liver enzymes were trended over the course of the hospital stay and showed gradual downward trended from 2823 to 506 of the AST and the ALT also came down from 2434 to 972. We think . Mr. Harris is now clinically stable. He will need to follow up with Dr. Santos on an outpatient basis. Mr. Harris is also advised on universal precautions other not to present the hepatitis A infection to other people. DISCHARGE INSTRUCTIONS: All the discharge instructions have been discussed with him. His was at the bedside and has also been encouraged to do her hepatitis serologies especially because of the being hepatitis C positive. All the discharge instructions have been discussed with him. He voiced understanding. TIME SPENT FOR DISCHARGE: Thirty-five minutes. cc: Jeff Friedman MD
--- NOTE | 2019-04-26 18:09 | GASTROENTEROLOGY PROGRESS NOTE ---
DATE: 04/26/2019 SUBJECTIVE: Patient is awake, alert, no acute distress. His girlfriend was at the bedside. Hepatitis profile came back positive for hepatitis C and positive for acute hepatitis A. He is currently in isolation. Infectious Control nurse at the hospital was notified and it has been reported. I have discussed with the patient about precautions necessary. He may be discharged today. Patient plans to go back to his home in [place]. He is waiting on family to come and pick him up because he had some car problems. He states they will be coming to get him over the weekend. OBJECTIVE: Vital Signs: Temperature 97.8 degrees, pulse 56, respirations 18, blood pressure 115/74. General: Patient is awake, alert, no acute distress. LABORATORY: Hematology. On 04/24/2019 WBC 3.54, hemoglobin 13.1, hematocrit 36.0, MCV 88.9, platelets 234,000. Chemistry 04/26/2019 sodium 136, potassium 3.9, chloride 101, CO2 28, BUN 8, creatinine 0.6, glucose 98, calcium 8.2, total bilirubin 9.26, AST 506, ALT 972. Iron 149, TIBC 184, percent saturation 81, ferritin 2157. ASSESSMENT AND PLAN: 1. Elevated liver function test are improving. 2. Hepatitis C. 3. Hepatitis A, IgM positive. 4. Chronic alcohol abuse and tobacco abuse. Counseled on smoking and alcohol cessation. 5. Liver function tests are improving. The patient may be discharged. He lives in [place]. I recommended he get with his primary care provider for referral for home improvement contractor for hepatitis C treatment. We will be available while he is still in town. I have discussed this case with Dr. Santos. Dictated by RORY Mccartney for Placido Santos MD cc: RORY Middleton MD
[2019-04-29 10:49] LABS: HCV BY PCR SEE COMMENTS
== END 2019-04-26 16:32 | disposition home or self-care (01) | DRG 433 ==
LOC: ED 20:06 → 4N 04-23 07:08 → SUATTDRO 04-23 07:08
PROVIDERS: ATTEND Internal Medicine